=== PATIENT | male | born 1955 | race African-American/Black ===

== ENCOUNTER 2020-06-12 13:31 | Observation (INO) ==
[2020-06-12] MEDS ORDERED: SOLU-Medrol 125 MG VIAL IVP ONE (17:23)
[2020-06-12] MEDS ORDERED: NS 1000 ML 1,000 ML ONE (17:30)
--- NOTE | 2020-06-12 17:34 | RAD ---
HISTORYCOUGHSTUDYCHEST, PA/LAT ADULTCOMPARISONnoneFINDINGSThe trachea is midline. The cardiac silhouette is unremarkable . The lungs are clear without focal infiltrate or effusion. The bony thorax is unremarkable.IMPRESSIONNo acute cardiopulmonary disease.Electronically signed by: RICHARD WELCH (Jun 12, 2020 17:34:03)
[2020-06-12 18:02] VITALS: BMI 42.7
[2020-06-12] MEDS: ROCEPHIN VIAL 1 GRAM 1 G in NS 100 ML IV + SPIKE MINIBAG* 100 ML IV SCH (18:04)
[2020-06-12] MEDS: ZITHROMAX INJ 500 MG VIAL 250 MG in NS 250 ML IV 250 ML IV SCH ×2 (18:04→21:25)
[2020-06-12] MEDS: NS 1000 ML 1,000 ML IV SCH (18:05)
[2020-06-12 18:13] LABS: BASOPHILS # (AUTO) 0.1 X10^3/uL (0.0-0.1); BASOPHILS % (AUTO) 1.3 % (0.2-1.0); EOSINOPHILS # (AUTO) 0.5 x10^3/uL (0.0-0.2); EOSINOPHILS % (AUTO) 4.8 % (0.9-2.9); HEMATOCRIT 38.2 % (42.0-54.0); LYMPHOCYTES # (AUTO) 4.5 X10^3/uL (1.3-2.9); LYMPHOCYTES % (AUTO) 39.2 % (21.0-51.0); MEAN CORPUSCULAR HEMOGLOBIN 30.8 pg (27.0-34.0); MEAN CORPUSCULAR VOLUME 90.4 fL (80.0-100.0); MONOCYTES % (AUTO) 8.8 % (0.0-13.0); NEUTROPHILS # (AUTO) 5.3 x10^3/uL (2.2-4.8); NEUTROPHILS % (AUTO) 45.9 % (42.0-75.0); PLATELET COUNT 424 X10^3/uL (150.0-450.0); RED BLOOD COUNT 4.23 X10^6/uL (4.7-6.0); RED CELL DISTRIBUTION WIDTH 14.4 % (11.6-16.5); WHITE BLOOD COUNT 11.5 X10^3/uL (3.6-10.0)
[2020-06-12 18:20] LABS: ALANINE AMINOTRANSFERASE 36 Units/L (12-78); ALBUMIN 3.8 g/dL (3.4-5.0); ALKALINE PHOSPHATASE 70 Units/L (46-116); ASPARTATE AMINO TRANSFERASE 14 Units/L (15-37); BLOOD UREA NITROGEN 14 mg/dL (7-18); CALCIUM 9.3 mg/dL (8.5-10.1); CARBON DIOXIDE 29.1 mmol/L (21-32); CHLORIDE 102 mmol/L (98-107); CREATININE 1.33 mg/dL (0.70-1.30); SODIUM 141 mmol/L (136-145); TOTAL PROTEIN 7.6 g/dL (6.4-8.2); eGFR NON BLACK RACES 58 (>60)
[2020-06-12 18:42] LABS: ABG ALLEN TEST POS; ABG BASE EXCESS 5.1 mmol/L (-2.0-2.0); ABG HCO3 29.9 mmol/L (22-26)
[2020-06-12] MEDS ORDERED: NS 250 ML IV 250 ML IV ONE (21:03)
[2020-06-12] MEDS ORDERED: ZITHROMAX INJ 500 MG VIAL IV ONE (21:03)
[2020-06-12] MEDS: DUONEB 0.5 MG/3 MG (3 mL) NEB SCH (21:30)
[2020-06-12 21:41] LABS: BILIRUBIN,URINE NEGATIVE (NEGATIVE); BLOOD/HEMOGLOBIN,URINE NEGATIVE (NEGATIVE); GLUCOSE, URINE NEGATIVE (NEGATIVE); KETONES,URINE NEGATIVE (NEGATIVE); LEUKOCYTE ESTERASE ,URINE NEGATIVE (NEGATIVE); NITRITES,URINE NEGATIVE (NEGATIVE); PROTEIN,URINE NEGATIVE (NEGATIVE); UROBILINOGEN,URINE NORMAL (NORMAL)
[2020-06-12 21:42] LABS: APPEARANCE,URINE CLEAR (CLEAR); COLOR,URINE YELLOW (YELLOW)
[2020-06-13] MEDS: DUONEB 0.5 MG/3 MG (3 mL) NEB SCH ×5 (01:30→21:40)
[2020-06-13 06:20] LABS: BASOPHILS % (AUTO) 0.4 % (0.2-1.0); HEMATOCRIT 37.2 % (42.0-54.0); HEMOGLOBIN 12.8 g/dL (13.5-18.0); LYMPHOCYTES # (AUTO) 2.5 X10^3/uL (1.3-2.9); LYMPHOCYTES % (AUTO) 24.9 % (21.0-51.0); MEAN CORPUSCULAR HEMOGLOBIN 31.3 pg (27.0-34.0); MEAN CORPUSCULAR HGB CONC 34.4 g/dL (33.0-35.0); MEAN CORPUSCULAR VOLUME 90.9 fL (80.0-100.0); MONOCYTES # (AUTO) 0.1 x10^3/uL (0.3-0.8); NEUTROPHILS # (AUTO) 7.4 x10^3/uL (2.2-4.8); NEUTROPHILS % (AUTO) 73.7 % (42.0-75.0); PLATELET COUNT 423 X10^3/uL (150.0-450.0); RED BLOOD COUNT 4.09 X10^6/uL (4.7-6.0); RED CELL DISTRIBUTION WIDTH 14.6 % (11.6-16.5)
[2020-06-13 06:37] LABS: ALANINE AMINOTRANSFERASE 32 Units/L (12-78); ALBUMIN 3.4 g/dL (3.4-5.0); ALKALINE PHOSPHATASE 63 Units/L (46-116); ASPARTATE AMINO TRANSFERASE 14 Units/L (15-37); BLOOD UREA NITROGEN 22 mg/dL (7-18); CARBON DIOXIDE 26.1 mmol/L (21-32); CHLORIDE 104 mmol/L (98-107); COR NA(FOR HYPERGLY) 141 mmol/L (136-145); CREATININE 1.54 mg/dL (0.70-1.30); SODIUM 140 mmol/L (136-145); TOTAL PROTEIN 7.2 g/dL (6.4-8.2); eGFR NON BLACK RACES 49 (>60)
[2020-06-13] MEDS: SOLU-Medrol 40 MG VIAL IVP SCH ×2 (09:04→16:21)
[2020-06-13] MEDS: ROCEPHIN VIAL 1 GRAM 1 G in NS 100 ML IV + SPIKE MINIBAG* 100 ML IV SCH (09:04)
[2020-06-13] MEDS: NS 1000 ML 1,000 ML IV SCH ×2 (09:04→23:00)
[2020-06-13] MEDS: ZITHROMAX INJ 500 MG VIAL 250 MG in NS 250 ML IV 250 ML IV SCH (09:05)
[2020-06-13 09:51] LABS: CKMB % 1.5 % (<4); CREATINE KINASE 65 Units/L (39-308); TROPONIN I < 0.02 ng/mL (0-1.5)
[2020-06-13] MEDS: LOVENOX INJ 40 MG SYR SC SCH (12:01)
[2020-06-13] MEDS: PROTONIX INJ 40 MG VIAL IVP SCH (12:01)
[2020-06-13] MEDS ORDERED: NORCO 10/325 TAB ONE (15:27)
[2020-06-13] MEDS ORDERED: CARDIZEM ER 60 MG 12-HR PO ONE (15:27)
[2020-06-13] MEDS ORDERED: CARDIZEM CD 240 MG 24-HR PO ONE (15:27)
[2020-06-13] MEDS ORDERED: LEVSIN/MAALOX/LIDOC VISC ONE (15:27)
[2020-06-13 15:48] LABS: CKMB % 2.8 % (<4); CREATINE KINASE MB 2.1 ng/mL (0-4.0); TROPONIN I 0.02 ng/mL (0-1.5)
[2020-06-13] MEDS: COZAAR PO SCH ×2 (16:20→16:21)
[2020-06-13] MEDS: NEURONTIN CAP 100 MG PO SCH ×2 (17:33→23:00)
[2020-06-13 21:53] LABS: CREATINE KINASE MB 3.4 ng/mL (0-4.0); TROPONIN I 0.03 ng/mL (0-1.5)
[2020-06-13] MEDS: NYSTATIN SUSP PO SCH (22:04)
[2020-06-13] MEDS: NORCO 10/325 TAB PO PRN (23:01)
[2020-06-14] MEDS: DUONEB 0.5 MG/3 MG (3 mL) NEB SCH ×6 (00:35→21:01)
[2020-06-14] MEDS: SOLU-Medrol 40 MG VIAL IVP SCH ×4 (00:48→22:00)
[2020-06-14] MEDS: NYSTATIN SUSP PO SCH ×3 (05:59→22:00)
[2020-06-14] MEDS: NEURONTIN CAP 100 MG PO SCH (05:59)
[2020-06-14] MEDS: NORCO 10/325 TAB PO PRN ×2 (06:00→21:45)
[2020-06-14 06:26] LABS: MONOCYTES # (AUTO) 0.7 x10^3/uL (0.3-0.8); MONOCYTES % (AUTO) 2.9 % (0.0-13.0)
[2020-06-14 06:35] LABS: BASOPHILS % (AUTO) 0.2 % (0.2-1.0); HEMATOCRIT 36.6 % (42.0-54.0); HEMOGLOBIN 12.3 g/dL (13.5-18.0); LYMPHOCYTES % (AUTO) 8.7 % (21.0-51.0); MEAN CORPUSCULAR HEMOGLOBIN 30.8 pg (27.0-34.0); MEAN CORPUSCULAR HGB CONC 33.5 g/dL (33.0-35.0); MEAN PLATELET VOLUME 7.7 fL (7.4-11.0); NEUTROPHILS # (AUTO) 20.3 x10^3/uL (2.2-4.8); NEUTROPHILS % (AUTO) 88.2 % (42.0-75.0); PLATELET COUNT 417 X10^3/uL (150.0-450.0); RED BLOOD COUNT 3.98 X10^6/uL (4.7-6.0); RED CELL DISTRIBUTION WIDTH 15.1 % (11.6-16.5)
[2020-06-14 06:36] LABS: ALANINE AMINOTRANSFERASE 32 Units/L (12-78); ALBUMIN 3.4 g/dL (3.4-5.0); ALKALINE PHOSPHATASE 79 Units/L (46-116); ASPARTATE AMINO TRANSFERASE 14 Units/L (15-37); BLOOD UREA NITROGEN 24 mg/dL (7-18); CALCIUM 8.6 mg/dL (8.5-10.1); CARBON DIOXIDE 24.8 mmol/L (21-32); CHLORIDE 104 mmol/L (98-107); COR NA(FOR HYPERGLY) 141 mmol/L (136-145); CREATININE 1.25 mg/dL (0.70-1.30); SODIUM 139 mmol/L (136-145); eGFR NON BLACK RACES > 60 (>60)
[2020-06-14 07:02] LABS: BAND NEUTROPHILS % 8 % (0-10); PLATELET MORPHOLOGY COMMENT NORMAL (NORMAL)
[2020-06-14] MEDS: COZAAR PO SCH (08:57)
[2020-06-14] MEDS: LOVENOX INJ 40 MG SYR SC SCH (08:59)
[2020-06-14] MEDS ORDERED: DILTIAZEM HCL 300 MG PO SCH (09:00)
[2020-06-14] MEDS: PROTONIX INJ 40 MG VIAL IVP SCH (09:00)
[2020-06-14] MEDS ORDERED: PATIENT'S HOME MEDICATION (Umeclidinium-Vilanterol [Anoro Ellipta] 1 INH) IN SCH (09:00)
[2020-06-14] MEDS: ZITHROMAX INJ 500 MG VIAL 250 MG in NS 250 ML IV 250 ML IV SCH (09:01)
[2020-06-14] MEDS: ROCEPHIN VIAL 1 GRAM 1 G in NS 100 ML IV + SPIKE MINIBAG* 100 ML IV SCH (09:01)
[2020-06-14] MEDS: MAXZIDE 75/50 MG PO SCH (09:02)
--- NOTE | 2020-06-14 09:11 | DR.UPDATE ---
H&P Update History and Physical Update: History and Physical reviewed and patient examined. 06/12/2020 Changes noted: NO Prescription drug monitoring program results: PDMP reviewed and no concerns identified H&P Reviewed: Yes Patient was examined?: Yes
[2020-06-14 10:33] LABS: CKMB % 2.6 % (<4); TROPONIN I 0.04 ng/mL (0-1.5)
[2020-06-14 10:36] LABS: CREATINE KINASE MB 4.1 ng/mL (0-4.0)
--- NOTE | 2020-06-14 11:06 | RAD ---
HISTORY:Cough, COPDStudy: Single view chestComparison:06/12/2020FINDINGS/IMPRESSION:There is mild central vascular congestion and atelectas is at the lung bases that may be accentuated by portable technique. No infiltrate or pneumothorax mona ntified. Soft tissues are intact. Heart size is normal.Electronically signed by: DIETER MAJOR (Jun 14, 2020 11:05:29)
[2020-06-14] MEDS: CARDIZEM CD 240 MG 24-HR PO SCH (11:24)
[2020-06-14] MEDS: NEURONTIN TAB 600 MG PO SCH ×2 (13:27→22:00)
[2020-06-14] MEDS: NS 1000 ML 1,000 ML IV SCH (18:22)
[2020-06-14] MEDS: ZOCOR TAB 40 MG PO SCH (22:00)
[2020-06-14] MEDS: HYTRIN PO SCH (22:00)
[2020-06-15] MEDS: DUONEB 0.5 MG/3 MG (3 mL) NEB SCH ×6 (00:31→20:10)
[2020-06-15] MEDS: NS 1000 ML 1,000 ML IV SCH ×2 (02:58→15:11)
[2020-06-15] MEDS: NEURONTIN TAB 600 MG PO SCH ×3 (06:00→22:00)
[2020-06-15] MEDS: SOLU-Medrol 40 MG VIAL IVP SCH ×3 (06:00→21:00)
[2020-06-15] MEDS: NYSTATIN SUSP PO SCH ×3 (06:00→21:00)
[2020-06-15] MEDS: NORCO 10/325 TAB PO PRN ×2 (06:00→21:00)
--- NOTE | 2020-06-15 06:38 | RAD ---
HISTORYSOBSTUDYAP [id number]/16/2020FINDINGSHeart size is similar, upper normal to slightly enlarged. The lungs are hyperaerated but grossly clear. The left lower lobe is partly obscured by the heart. There is no evidence for developing consolidation, or edema. No pneumothorax is seen.IMPRESSIONNo change since 1 day earlier.Electronically signed by: NANCI MASTERS (Jun 15, 2020 06:37:22)
[2020-06-15 06:46] LABS: BASOPHILS % (AUTO) 0 % (0.2-1.0); HEMATOCRIT 35.2 % (42.0-54.0); HEMOGLOBIN 11.9 g/dL (13.5-18.0); LYMPHOCYTES # (AUTO) 1.8 X10^3/uL (1.3-2.9); LYMPHOCYTES % (AUTO) 9.5 % (21.0-51.0); MEAN CORPUSCULAR HGB CONC 33.8 g/dL (33.0-35.0); MEAN CORPUSCULAR VOLUME 91.9 fL (80.0-100.0); MEAN PLATELET VOLUME 7.9 fL (7.4-11.0); MONOCYTES # (AUTO) 0.5 x10^3/uL (0.3-0.8); MONOCYTES % (AUTO) 2.7 % (0.0-13.0); NEUTROPHILS # (AUTO) 16.9 x10^3/uL (2.2-4.8); NEUTROPHILS % (AUTO) 87.8 % (42.0-75.0); PLATELET COUNT 396 X10^3/uL (150.0-450.0); RED BLOOD COUNT 3.83 X10^6/uL (4.7-6.0); WHITE BLOOD COUNT 19.3 X10^3/uL (3.6-10.0)
[2020-06-15 07:16] LABS: ALANINE AMINOTRANSFERASE 34 Units/L (12-78); ALBUMIN 3.3 g/dL (3.4-5.0); ALKALINE PHOSPHATASE 65 Units/L (46-116); ASPARTATE AMINO TRANSFERASE 13 Units/L (15-37); BLOOD UREA NITROGEN 21 mg/dL (7-18); CALCIUM 8.4 mg/dL (8.5-10.1); CARBON DIOXIDE 23.5 mmol/L (21-32); CHLORIDE 105 mmol/L (98-107); CKMB % 3.1 % (<4); COR NA(FOR HYPERGLY) 142 mmol/L (136-145); CREATINE KINASE 124 Units/L (39-308); CREATINE KINASE MB 3.8 ng/mL (0-4.0); CREATININE 1.21 mg/dL (0.70-1.30); SODIUM 141 mmol/L (136-145); TOTAL PROTEIN 6.7 g/dL (6.4-8.2); TROPONIN I 0.02 ng/mL (0-1.5); eGFR NON BLACK RACES > 60 (>60)
[2020-06-15] MEDS: PROTONIX INJ 40 MG VIAL IVP SCH (09:45)
[2020-06-15] MEDS: CARDIZEM CD 240 MG 24-HR PO SCH (09:45)
[2020-06-15] MEDS: MAXZIDE 75/50 MG PO SCH (09:45)
[2020-06-15] MEDS: LOVENOX INJ 40 MG SYR SC SCH (09:45)
[2020-06-15] MEDS: COZAAR PO SCH (09:45)
[2020-06-15] MEDS ORDERED: KLOR-CON PO PRN (10:15)
[2020-06-15] MEDS ORDERED: K-RIDER 10 MEQ/NS 100 ML 10 MEQ/100 ML BAG IV PRN (10:15)
[2020-06-15] MEDS ORDERED: K-DUR TAB 20 MEQ PO PRN (10:15)
[2020-06-15] MEDS ORDERED: MICRO K EXTEN CAP 10 MEQ PO PRN (10:15)
[2020-06-15] MEDS ORDERED: POTASSIUM CHL 60 MEQ/NS 0.45% 500 ML IV PRN (10:15)
[2020-06-15] MEDS ORDERED: POTASSIUM CHL 40 MEQ/NS 0.45% 500 ML IV PRN (10:15)
[2020-06-15] MEDS ORDERED: POTASSIUM CHLORIDE LIQ 20 MEQ UDC PO PRN (10:15)
[2020-06-15] MEDS ORDERED: MICRO K EXTEN CAP 10 MEQ PO ONE (10:19)
[2020-06-15] MEDS: LEVAQUIN PREMIX IV 500 MG 500 MG/100 ML BAG IV SCH (11:00)
[2020-06-15] MEDS: FORTAZ or TAZICEF VIAL INJ 1 G in NS 100 ML IV + SPIKE MINIBAG* 100 ML IV SCH ×3 (12:00→21:00)
[2020-06-15] MEDS: DIFLUCAN 200 MG IV PREMIX* 200 MG/100 ML BAG IV SCH (12:21)
[2020-06-15] MEDS: MUCOMYST (RESPIRATORY USE ONLY) NEB SCH ×2 (12:36→20:10)
--- NOTE | 2020-06-15 20:55 | PCM.PROG ---
Progress Note - Progress Note for Day of Date of Exam: 06/15/20 - Subjective Subjective: IS BEING TREATED FOR COPD EXACERBATION WITH ACUTE BRONCHITIS. TODAY, IS ALERT AND OREINTED, LYING IN BED ON MORNING ROUNDS. HE CONTINUES WITH COMPLAINTS OF A NON-PRODUCTIVE COUGH AND SHORTNESS OF BREATH. ON EXAMINATION, HEART IS REGULAR IN RATE AND RHYTHM. BILATERAL LUNGS ARE NOTED WITH SCATTERED WHEEZING THROUGHOUT. ABDOMEN IS ROUND, SOFT, AND NON-TENDER WITH NORMAL BOWEL SOUNDS NOTED IN ALL QUADRANTS. HIS VITALS THIS MORNING ARE: 97.6-70-20-94%RA-155/68. LABS WERE OBTAINED. ABNORMAL LAB VALUES INCLUDE THE FOLLOWING: WBC DECREASED FROM 23.0 TO 19.3, RBC 3.83, HGB 11.9, HCT 35.2, BUN 21, GLUCOSE 155, CALCIUM 8.4, TOTAL BILI 0.10, AST 13, ALBUMIN 3.3. ELEVATED WBC IS SUSPECTED TO BE FROM STEROID USE. SPUTUM CULTURE REVEALS GROWTH OF YEAST. CHEST XRAY WAS OBTAINED TODAY AND REVEALED: Heart size is similar, upper normal to slightly enlarged. The lungs are hyperaerated but grossly clear. The left lower lobe is partly obscured by the heart. There is no evidence for developing consolidation, or edema. No pneumothorax is seen. HE IS CURRENTLY RECEIVING NS AT [facility], ROCEPHIN 1G IV DAILY, ZITHROMAX 250MG IV DAILY, DUONEBS Q4H, MUCOMYST BID, LOVENOX 40MG SC DAILY, SOLU-MEDROL 40MG IV Q8H, NYSTATIN SWISH AND SWALLOW TID, PROTONIX 40MG IV DAILY, AND THE PTOASSIUM AND MAGNESIUM PROTOCOLS. TODAY, WE WILL ADD DIFLUCAN 200MG IV DAILY, LEVAQUIN 500MG IV DAILY, FORTAZ 1G IV TID. WE WILL DISCONTINUE THE ROCEPHIN AND ZITHROMAX. OTHERWISE, WE PLAN TO FOLLOW UP WITH AM LABS AND CONTINUE TO MONITOR. - Past Medical Family Social History Past Med/Fam/Surg Hx: No changes since H&P Allergies: Allergies No Known Drug Allergies Allergy (Verified 06/12/20 17:07) - Review of Systems ROS: No change since H&P - Vital Signs and I&O's Vital Signs: Temperature 97.6 F Pulse Rate [Apical] 71 Pulse Rate 69 Respiratory Rate 22 Blood Pressure [Right Arm] 137/60 O2 Sat by Pulse Oximetry 98 Intake and Output: Intake & Output 06/13/20 06/14/20 06/15/20 06/16/20 11:59 11:59 11:59 11:59 Intake Total 1760 / 1760 4170 / 4170 2700 / 2700 1164 / 1164 Output Total 225 / 225 1625 / 1625 1200 / 1200 Balance 1535 / 1535 2545 / 2545 1500 / 1500 1164 / 1164 - Physical Exam Oriented: Normal Eyes: Normal Ear: Normal Nose: Normal Throat: Normal Respiratory: Generalized, Wheezes Cardiovascular: Normal : Normal Auscultation: Bowel Sounds: Normal Palpation: Normal Tenderness: Normal Skin: Normal Musculoskeletal: Normal Psychiatric: Normal Mood Description: Calm Affect: Normal Speech Pattern: Clear, Appropriate - Laboratory and Diagnostics Result Diagrams: 06/15/20 05:20 06/15/20 05:20 Labs: 06/12/20 21:27 Urine,Clean Catch Urine Culture - Final 06/13/20 10:08 Sputum - Expectorated Sputum Sputum Culture - Final 06/13/20 10:08 Sputum - Expectorated Sputum - Final 06/12/20 17:50 Blood Blood Culture - Preliminary Laboratory WBC 19.3 X10^3/uL (3.6-10.0) H 06/15/20 05:20 RBC 3.83 X10^6/uL (4.7-6.0) L 06/15/20 05:20 Hgb 11.9 g/dL (13.5-18.0) L 06/15/20 05:20 Hct 35.2 % (42.0-54.0) L 06/15/20 05:20 MCV 91.9 fL (80.0-100.0) 06/15/20 05:20 MCH 31.0 pg (27.0-34.0) 06/15/20 05:20 MCHC 33.8 g/dL (33.0-35.0) 06/15/20 05:20 RDW 15.0 % (11.6-16.5) 06/15/20 05:20 Plt Count 396 X10^3/uL (150.0-450.0) 06/15/20 05:20 Plt Count Comment Adequate (ADEQUATE) 06/14/20 06:00 MPV 7.9 fL (7.4-11.0) 06/15/20 05:20 Neut % (Auto) 87.8 % (42.0-75.0) H 06/15/20 05:20 Lymph % (Auto) 9.5 % (21.0-51.0) L 06/15/20 05:20 [place] % (Auto) 2.7 % (0.0-13.0) 06/15/20 05:20 Eos % (Auto) 0.0 % (0.9-2.9) L 06/15/20 05:20 Baso % (Auto) 0 % (0.2-1.0) L 06/15/20 05:20 Neut # (Auto) 16.9 x10^3/uL (2.2-4.8) H 06/15/20 05:20 Lymph # (Auto) 1.8 X10^3/uL (1.3-2.9) 06/15/20 05:20 [place] # (Auto) 0.5 x10^3/uL (0.3-0.8) 06/15/20 05:20 Eos # (Auto) 0.0 x10^3/uL (0.0-0.2) 06/15/20 05:20 Baso # (Auto) 0.0 X10^3/uL (0.0-0.1) 06/15/20 05:20 Absolute Nucleated RBC 0.0 /100WBC 06/15/20 05:20 Total Counted 100 06/14/20 06:00 Neutrophils % (Manual) 75 % (39-76) 06/14/20 06:00 Band Neutrophils % 8 % (0-10) 06/14/20 06:00 Lymphocytes % (Manual) 15 % (13-43) 06/14/20 06:00 Monocytes % (Manual) 2 % (4-9) L 06/14/20 06:00 Plt Morphology Comment Normal (NORMAL) 06/14/20 06:00 RBC Morphology Normal (NORMAL) 06/14/20 06:00 Sample Site Rra 06/12/20 18:39 ABG pH 7.440 (7.35-7.45) 06/12/20 18:39 ABG pCO2 44.0 mmHg (35.0-45.0) 06/12/20 18:39 ABG pO2 63.0 mmHg (80.0-100.0) L 06/12/20 18:39 ABG HCO3 29.9 mmol/L (22-26) H 06/12/20 18:39 ABG O2 Saturation 93.0 % (90-100) 06/12/20 18:39 ABG Base Excess 5.1 mmol/L (-2.0-2.0) H 06/12/20 18:39 Hira Test Pos 06/12/20 18:39 A-a Gradient 32.0 mmHg 06/12/20 18:39 FiO2 21.0 06/12/20 18:39 Blood Gas Comments Pt james well eb 06/12/20 18:39 Sodium 141 mmol/L (136-145) 06/15/20 05:20 Corrected Sodium 142 mmol/L (136-145) 06/15/20 05:20 Potassium 3.5 mmol/L (3.5-5.1) 06/15/20 05:20 Chloride 105 mmol/L (98-107) 06/15/20 05:20 Carbon Dioxide 23.5 mmol/L (21-32) 06/15/20 05:20 BUN 21 mg/dL (7-18) H 06/15/20 05:20 Creatinine 1.21 mg/dL (0.70-1.30) 06/15/20 05:20 Est GFR (MDRD) Af Amer > 60 (>60) 06/15/20 05:20 Est GFR (MDRD) Non-Af > 60 (>60) 06/15/20 05:20 Glucose 155 mg/dL (65-99) H 06/15/20 05:20 Calcium 8.4 mg/dL (8.5-10.1) L 06/15/20 05:20 Corrected Calcium 9.0 mg/dL (8.5-10.1) 06/15/20 05:20 Magnesium 1.7 mg/dL (1.7-2.9) 06/15/20 05:20 Total Bilirubin 0.10 mg/dL (0.2-1.0) L 06/15/20 05:20 AST 13 Units/L (15-37) L 06/15/20 05:20 ALT 34 Units/L (12-78) 06/15/20 05:20 Alkaline Phosphatase 65 Units/L (46-116) 06/15/20 05:20 Creatine Kinase 124 Units/L (39-308) 06/15/20 05:20 CK-MB (CK-2) 3.8 ng/mL (0-4.0) 06/15/20 05:20 CK/CKMB % Calc 3.1 % (<4) 06/15/20 05:20 Troponin I 0.02 ng/mL (0-1.5) 06/15/20 05:20 Total Protein 6.7 g/dL (6.4-8.2) 06/15/20 05:20 Albumin 3.3 g/dL (3.4-5.0) L 06/15/20 05:20 Globulin 3.4 g/dL (2.5-4.5) 06/15/20 05:20 Albumin/Globulin Ratio 1.0 Ratio (1.1-2.1) L 06/15/20 05:20 Specimen Type Clean catch urine 06/12/20 21: Urine Color Yellow (YELLOW) 06/12/20 21: Urine Appearance Clear (CLEAR) 06/12/20 21: Urine pH 5.0 (5.0 - 8.0) 06/12/20 21: Ur Specific [place] 1.020 (1.000-1.030) 06/12/20 21: Urine Protein Negative (NEGATIVE) 06/12/20 21: Urine Glucose (UA) Negative (NEGATIVE) 06/12/20 21: Urine Ketones Negative (NEGATIVE) 06/12/20 21: Urine Occult Blood Negative (NEGATIVE) 06/12/20 21: Urine Nitrite Negative (NEGATIVE) 06/12/20 21: Urine Bilirubin Negative (NEGATIVE) 06/12/20 21: Urine Urobilinogen Normal (NORMAL) 06/12/20 21: Ur Leukocyte Esterase Negative (NEGATIVE) 06/12/20: - Plan (1) COPD exacerbation Status: Acute
[2020-06-15] MEDS: ZOCOR TAB 40 MG PO SCH (21:00)
[2020-06-15] MEDS: HYTRIN PO SCH (21:00)
[2020-06-16] MEDS: DUONEB 0.5 MG/3 MG (3 mL) NEB SCH ×6 (00:30→20:30)
[2020-06-16] MEDS: MAGNESIUM SULFATE 1 GRAM/100 mL PREMIX 1 GM/100 ML BAG IV PRN ×2 (01:00→03:00)
[2020-06-16] MEDS: SOLU-Medrol 40 MG VIAL IVP SCH ×3 (05:46→21:04)
[2020-06-16] MEDS: FORTAZ or TAZICEF VIAL INJ 1 G in NS 100 ML IV + SPIKE MINIBAG* 100 ML IV SCH ×3 (05:47→21:06)
[2020-06-16] MEDS: NEURONTIN TAB 600 MG PO SCH ×3 (05:47→21:07)
[2020-06-16] MEDS: NYSTATIN SUSP PO SCH ×3 (05:48→21:07)
[2020-06-16] MEDS: NORCO 10/325 TAB PO PRN ×3 (06:00→23:15)
--- NOTE | 2020-06-16 06:53 | RAD ---
06/15/2020 HISTORYSOBSTUDYCHEST, 1 [id number]/17/2020FINDINGSThe trachea is midline. The cardiac silhouette is borderline enlarged, unchanged. The lungs are clear without focal infiltrate or effusion. The bony thorax is unremarkable.[ ]IMPRESSIONNo acute cardiopulmonary abnormality or change from prior examination.Electronically signed by: JALIL PERRY (Jun 16, 2020 06:51:33)
[2020-06-16 07:11] LABS: BASOPHILS % (AUTO) 0.2 % (0.2-1.0); HEMATOCRIT 33.6 % (42.0-54.0); HEMOGLOBIN 11.4 g/dL (13.5-18.0); LYMPHOCYTES # (AUTO) 1.7 X10^3/uL (1.3-2.9); LYMPHOCYTES % (AUTO) 12.3 % (21.0-51.0); MEAN CORPUSCULAR HEMOGLOBIN 31.1 pg (27.0-34.0); MEAN CORPUSCULAR HGB CONC 33.9 g/dL (33.0-35.0); MEAN CORPUSCULAR VOLUME 91.8 fL (80.0-100.0); MEAN PLATELET VOLUME 7.5 fL (7.4-11.0); MONOCYTES # (AUTO) 0.7 x10^3/uL (0.3-0.8); MONOCYTES % (AUTO) 5.2 % (0.0-13.0); NEUTROPHILS # (AUTO) 11.6 x10^3/uL (2.2-4.8); NEUTROPHILS % (AUTO) 82.3 % (42.0-75.0); PLATELET COUNT 328 X10^3/uL (150.0-450.0); RED BLOOD COUNT 3.67 X10^6/uL (4.7-6.0); RED CELL DISTRIBUTION WIDTH 15.1 % (11.6-16.5); WHITE BLOOD COUNT 14.2 X10^3/uL (3.6-10.0)
[2020-06-16 07:12] LABS: ALANINE AMINOTRANSFERASE 40 Units/L (12-78); ALKALINE PHOSPHATASE 66 Units/L (46-116); ASPARTATE AMINO TRANSFERASE 20 Units/L (15-37); BLOOD UREA NITROGEN 23 mg/dL (7-18); CALCIUM 8.3 mg/dL (8.5-10.1); CHLORIDE 105 mmol/L (98-107); COR CA(FOR HYPOALB) 9.1 mg/dL (8.5-10.1); COR NA(FOR HYPERGLY) 143 mmol/L (136-145); CREATININE 1.28 mg/dL (0.70-1.30); MAGNESIUM 2.3 mg/dL (1.7-2.9); SODIUM 141 mmol/L (136-145); TOTAL PROTEIN 6.2 g/dL (6.4-8.2); eGFR NON BLACK RACES > 60 (>60)
[2020-06-16] MEDS: COZAAR PO SCH (08:29)
[2020-06-16] MEDS: CARDIZEM CD 240 MG 24-HR PO SCH (08:29)
[2020-06-16] MEDS: LEVAQUIN PREMIX IV 500 MG 500 MG/100 ML BAG IV SCH (08:30)
[2020-06-16] MEDS: MAXZIDE 75/50 MG PO SCH (08:30)
[2020-06-16] MEDS: DIFLUCAN 200 MG IV PREMIX* 200 MG/100 ML BAG IV SCH (08:30)
[2020-06-16] MEDS: PROTONIX INJ 40 MG VIAL IVP SCH (08:31)
[2020-06-16] MEDS: LOVENOX INJ 40 MG SYR SC SCH (08:48)
[2020-06-16] MEDS: MUCOMYST (RESPIRATORY USE ONLY) NEB SCH ×2 (08:55→20:30)
--- NOTE | 2020-06-16 12:38 | PCM.PROG ---
Progress Note - Progress Note for Day of Date of Exam: 06/16/20 - Subjective Subjective: IS BEING TREATED FOR COPD EXACERBATION WITH ACUTE BRONCHITIS. TODAY, HE IS ALERT AND OREINTED, LYING IN BED ON MORNING ROUNDS. HE CONTINUES WITH COMPLAINTS OF A NON-PRODUCTIVE COUGH AND SHORTNESS OF BREATH, BUT REPORTS SLIGHT IMPROVEMENT IN SYMPTOMS SINCE ONE DAY PRIOR. ON EXAMINATION, HEART IS REGULAR IN RATE AND RHYTHM. BILATERAL LUNGS ARE NOTED WITH SCATTERED WHEEZING THROUGHOUT. ABDOMEN IS ROUND, SOFT, AND NON-TENDER WITH NORMAL BOWEL SOUNDS NOTED IN ALL QUADRANTS. HIS VITALS THIS MORNING ARE: 97.7-81-20-94%-177/80. LABS WERE OBTAINED. ABNORMAL LAB VALUES INCLUDE THE FOLL OWING: WBC DECREASED FROM WBC 14.2, RBC 3.67, HGB 11.4, HCT 33.6, BUN 23, GLUCOSE 169, CALCIUM 8.3, TOTAL PROTEIN 6.2, ALBUMIN 3.0. ELEVATED WBC IS SUSPECTED TO BE FROM STEROID USE. SPUTUM CULTURE REVEALS GROWTH OF YEAST. CHEST XRAY WAS OBTAINED TODAY AND REVEALED: No acute cardiopulmonary abnormality or change from prior examination. HE IS CURRENTLY RECEIVING NS AT [facility], FORTAZ 1G IV TID, LEVAQUIN 500MG IV DAILY, DIFLUCAN 200MG IV DAILY, DUONEBS Q4H, MUCOMYST BID, LOVENOX 40MG SC DAILY, SOLU-MEDROL 40MG IV Q8H, NYSTATIN SWISH AND SWALLOW TID, PROTONIX 40MG IV DAILY, AND THE PTOASSIUM AND MAGNESIUM PROTOCOLS. WE WILL CONTINUE WITH CURRENT PLAN OF CARE TODAY. OTHERWISE, WE PLAN TO FOLLOW UP WITH AM LABS AND CONTINUE TO MONITOR. - Past Medical Family Social History Past Med/Fam/Surg Hx: No changes since H&P Allergies: Allergies No Known Drug Allergies Allergy (Verified 06/12/20 17:07) - Review of Systems ROS: No change since H&P - Vital Signs and I&O's Vital Signs: Temperature 97.6 F Pulse Rate [Apical] 86 Pulse Rate 78 Respiratory Rate 20 Blood Pressure [Right Arm] 186/78 O2 Sat by Pulse Oximetry 96 Intake and Output: Intake & Output 06/14/20 06/15/20 06/16/20 06/17/20 11:59 11:59 11:59 11:59 Intake Total 4170 / 4170 2700 / 2700 2984 / 2984 Output Total 1625 / 1625 1200 / 1200 Balance 2545 / 2545 1500 / 1500 2984 / 2984 - Physical Exam Oriented: Normal Eyes: Normal Ear: Normal Nose: Normal Throat: Normal Respiratory: Generalized, Wheezes Cardiovascular: Normal : Normal Auscultation: Bowel Sounds: Normal Tenderness: Normal Skin: Normal Musculoskeletal: Normal Psychiatric: Normal Mood Description: Calm Affect: Normal Speech Pattern: Clear, Appropriate - Laboratory and Diagnostics Result Diagrams: 06/16/20 05:19 06/16/20 05:19 Labs: 06/12/20 21:27 Urine,Clean Catch Urine Culture - Final 06/13/20 10:08 Sputum - Expectorated Sputum Sputum Culture - Final 06/13/20 10:08 Sputum - Expectorated Sputum - Final 06/12/20 17:50 Blood Blood Culture - Preliminary Laboratory WBC 14.2 X10^3/uL (3.6-10.0) H 06/16/20 05:19 RBC 3.67 X10^6/uL (4.7-6.0) L 06/16/20 05:19 Hgb 11.4 g/dL (13.5-18.0) L 06/16/20 05:19 Hct 33.6 % (42.0-54.0) L 06/16/20 05:19 MCV 91.8 fL (80.0-100.0) 06/16/20 05:19 MCH 31.1 pg (27.0-34.0) 06/16/20 05:19 MCHC 33.9 g/dL (33.0-35.0) 06/16/20 05:19 RDW 15.1 % (11.6-16.5) 06/16/20 05:19 Plt Count 328 X10^3/uL (150.0-450.0) 06/16/20 05:19 Plt Count Comment Adequate (ADEQUATE) 06/14/20 06:00 MPV 7.5 fL (7.4-11.0) 06/16/20 05:19 Neut % (Auto) 82.3 % (42.0-75.0) H 06/16/20 05:19 Lymph % (Auto) 12.3 % (21.0-51.0) L 06/16/20 05:19 [place] % (Auto) 5.2 % (0.0-13.0) 06/16/20 05:19 Eos % (Auto) 0.0 % (0.9-2.9) L 06/16/20 05:19 Baso % (Auto) 0.2 % (0.2-1.0) 06/16/20 05:19 Neut # (Auto) 11.6 x10^3/uL (2.2-4.8) H 06/16/20 05:19 Lymph # (Auto) 1.7 X10^3/uL (1.3-2.9) 06/16/20 05:19 [place] # (Auto) 0.7 x10^3/uL (0.3-0.8) 06/16/20 05:19 Eos # (Auto) 0.0 x10^3/uL (0.0-0.2) 06/16/20 05:19 Baso # (Auto) 0.0 X10^3/uL (0.0-0.1) 06/16/20 05:19 Absolute Nucleated RBC 0.0 /100WBC 06/16/20 05:19 Total Counted 100 06/14/20 06:00 Neutrophils % (Manual) 75 % (39-76) 06/14/20 06:00 Band Neutrophils % 8 % (0-10) 06/14/20 06:00 Lymphocytes % (Manual) 15 % (13-43) 06/14/20 06:00 Monocytes % (Manual) 2 % (4-9) L 06/14/20 06:00 Plt Morphology Comment Normal (NORMAL) 06/14/20 06:00 RBC Morphology Normal (NORMAL) 06/14/20 06:00 Sample Site Rra 06/12/20 18:39 ABG pH 7.440 (7.35-7.45) 06/12/20 18:39 ABG pCO2 44.0 mmHg (35.0-45.0) 06/12/20 18:39 ABG pO2 63.0 mmHg (80.0-100.0) L 06/12/20 18:39 ABG HCO3 29.9 mmol/L (22-26) H 06/12/20 18:39 ABG O2 Saturation 93.0 % (90-100) 06/12/20 18:39 ABG Base Excess 5.1 mmol/L (-2.0-2.0) H 06/12/20 18:39 Hira Test Pos 06/12/20 18:39 A-a Gradient 32.0 mmHg 06/12/20 18:39 FiO2 21.0 06/12/20 18:39 Blood Gas Comments Pt james well eb 06/12/20 18:39 Sodium 141 mmol/L (136-145) 06/16/20 05:19 Corrected Sodium 143 mmol/L (136-145) 06/16/20 05:19 Potassium 3.7 mmol/L (3.5-5.1) 06/16/20 05:19 Chloride 105 mmol/L (98-107) 06/16/20 05:19 Carbon Dioxide 26.0 mmol/L (21-32) 06/16/20 05:19 BUN 23 mg/dL (7-18) H 06/16/20 05:19 Creatinine 1.28 mg/dL (0.70-1.30) 06/16/20 05:19 Est GFR (MDRD) Af Amer > 60 (>60) 06/16/20 05:19 Est GFR (MDRD) Non-Af > 60 (>60) 06/16/20 05:19 Glucose 169 mg/dL (65-99) H 06/16/20 05:19 Calcium 8.3 mg/dL (8.5-10.1) L 06/16/20 05:19 Corrected Calcium 9.1 mg/dL (8.5-10.1) 06/16/20 05:19 Magnesium 2.3 mg/dL (1.7-2.9) 06/16/20 05:19 Total Bilirubin 0.20 mg/dL (0.2-1.0) 06/16/20 05:19 AST 20 Units/L (15-37) 06/16/20 05:19 ALT 40 Units/L (12-78) 06/16/20 05:19 Alkaline Phosphatase 66 Units/L (46-116) 06/16/20 05:19 Creatine Kinase 124 Units/L (39-308) 06/15/20 05:20 CK-MB (CK-2) 3.8 ng/mL (0-4.0) 06/15/20 05:20 CK/CKMB % Calc 3.1 % (<4) 06/15/20 05:20 Troponin I 0.02 ng/mL (0-1.5) 06/15/20 05:20 Total Protein 6.2 g/dL (6.4-8.2) L 06/16/20 05:19 Albumin 3.0 g/dL (3.4-5.0) L 06/16/20 05:19 Globulin 3.2 g/dL (2.5-4.5) 06/16/20 05:19 Albumin/Globulin Ratio 0.9 Ratio (1.1-2.1) L 06/16/20 05:19 Specimen Type Clean catch urine 06/12/20 21: Urine Color Yellow (YELLOW) 06/12/20: Urine Appearance Clear (CLEAR) 06/12/20 21: Urine pH 5.0 (5.0 - 8.0) 06/12/20 21: Ur Specific [place] 1.020 (1.000-1.030) 06/12/20 21: Urine Protein Negative (NEGATIVE) 06/12/20: Urine Glucose (UA) Negative (NEGATIVE) 06/12/20 21: Urine Ketones Negative (NEGATIVE) 06/12/20: Urine Occult Blood Negative (NEGATIVE) 06/12/20: Urine Nitrite Negative (NEGATIVE) 06/12/20: Urine Bilirubin Negative (NEGATIVE) 06/12/20: Urine Urobilinogen Normal (NORMAL) 06/12/20: Ur Leukocyte Esterase Negative (NEGATIVE) 06/12/20 - Plan (1) COPD exacerbation Status: Acute
[2020-06-16] MEDS: NS 1000 ML 1,000 ML IV SCH ×2 (17:37→21:01)
[2020-06-16] MEDS: ZOCOR TAB 40 MG PO SCH (21:01)
[2020-06-16] MEDS: HYTRIN PO SCH (21:01)
[2020-06-17] MEDS: DUONEB 0.5 MG/3 MG (3 mL) NEB SCH ×7 (01:46→23:49)
--- NOTE | 2020-06-17 05:23 | RAD ---
HISTORYSOBSTUDYCHEST, 1 [id number]/2020FINDINGSThe trachea is midline. The cardiac silhouette is stable. Mild central pulmonary vascular congestion. No new consolidation. Small left pleural effusion cannot be entirely excluded.. The bony thorax is stable.IMPRESSIONMild central pulmonary vascular congestion. Small left pleural effusion not excluded.Electronically signed by: Stacie Song (Jun 17, 2020 05:21:19)
[2020-06-17] MEDS: SOLU-Medrol 40 MG VIAL IVP SCH (05:49)
[2020-06-17] MEDS: NEURONTIN TAB 600 MG PO SCH ×3 (05:49→21:16)
[2020-06-17] MEDS: NYSTATIN SUSP PO SCH ×3 (05:49→21:16)
[2020-06-17] MEDS: FORTAZ or TAZICEF VIAL INJ 1 G in NS 100 ML IV + SPIKE MINIBAG* 100 ML IV SCH ×3 (05:49→21:16)
[2020-06-17] MEDS: NORCO 10/325 TAB PO PRN ×2 (06:09→21:15)
[2020-06-17 06:24] LABS: BASOPHILS % (AUTO) 0.1 % (0.2-1.0); HEMATOCRIT 34.8 % (42.0-54.0); HEMOGLOBIN 11.8 g/dL (13.5-18.0); LYMPHOCYTES % (AUTO) 14.2 % (21.0-51.0); MEAN CORPUSCULAR HGB CONC 33.9 g/dL (33.0-35.0); MEAN CORPUSCULAR VOLUME 91.5 fL (80.0-100.0); MEAN PLATELET VOLUME 7.6 fL (7.4-11.0); MONOCYTES % (AUTO) 6.8 % (0.0-13.0); NEUTROPHILS # (AUTO) 11.1 x10^3/uL (2.2-4.8); NEUTROPHILS % (AUTO) 78.9 % (42.0-75.0); PLATELET COUNT 375 X10^3/uL (150.0-450.0); RED CELL DISTRIBUTION WIDTH 15.1 % (11.6-16.5); WHITE BLOOD COUNT 14.1 X10^3/uL (3.6-10.0)
[2020-06-17 06:32] LABS: ALANINE AMINOTRANSFERASE 77 Units/L (12-78); ALBUMIN 3.2 g/dL (3.4-5.0); ALKALINE PHOSPHATASE 69 Units/L (46-116); ASPARTATE AMINO TRANSFERASE 39 Units/L (15-37); BLOOD UREA NITROGEN 25 mg/dL (7-18); CALCIUM 8.2 mg/dL (8.5-10.1); CARBON DIOXIDE 24.6 mmol/L (21-32); CHLORIDE 103 mmol/L (98-107); COR CA(FOR HYPOALB) 8.8 mg/dL (8.5-10.1); COR NA(FOR HYPERGLY) 141 mmol/L (136-145); CREATININE 1.33 mg/dL (0.70-1.30); SODIUM 140 mmol/L (136-145); TOTAL PROTEIN 6.4 g/dL (6.4-8.2); eGFR NON BLACK RACES 58 (>60)
[2020-06-17 07:16] LABS: BAND NEUTROPHILS % 2 % (0-10); PLATELET MORPHOLOGY COMMENT NORMAL (NORMAL)
[2020-06-17] MEDS: COZAAR PO SCH (09:25)
[2020-06-17] MEDS: CARDIZEM CD 240 MG 24-HR PO SCH (09:25)
[2020-06-17] MEDS: PROTONIX INJ 40 MG VIAL IVP SCH (09:25)
[2020-06-17] MEDS: LEVAQUIN PREMIX IV 500 MG 500 MG/100 ML BAG IV SCH (09:25)
[2020-06-17] MEDS: LOVENOX INJ 40 MG SYR SC SCH (09:25)
[2020-06-17 09:27] LABS: ABG ALLEN TEST POS; ABG BASE EXCESS 0.1 mmol/L (-2.0-2.0); ABG HCO3 25.4 mmol/L (22-26)
[2020-06-17] MEDS: MUCOMYST (RESPIRATORY USE ONLY) NEB SCH ×2 (09:55→20:43)
[2020-06-17] MEDS: K-DUR TAB 20 MEQ PO SCH ×2 (11:20→21:18)
[2020-06-17] MEDS: DIFLUCAN 200 MG IV PREMIX* 200 MG/100 ML BAG IV SCH (11:20)
[2020-06-17] MEDS ORDERED: LASIX IVP ONE (13:30)
[2020-06-17] MEDS: MAXZIDE 75/50 MG PO SCH (13:40)
[2020-06-17] MEDS: LASIX IVP SCH (19:02)
[2020-06-17] MEDS: HYTRIN PO SCH (21:00)
[2020-06-17] MEDS: ZOCOR TAB 40 MG PO SCH (21:18)
[2020-06-18] MEDS: DUONEB 0.5 MG/3 MG (3 mL) NEB SCH ×3 (04:44→13:13)
[2020-06-18] MEDS ORDERED: NS 100 ML IV 100 ML IV ONE (05:31)
[2020-06-18] MEDS ORDERED: FORTAZ or TAZICEF VIAL INJ ONE (05:31)
--- NOTE | 2020-06-18 05:34 | RAD ---
HISTORYSOBSTUDYCHEST, 1 [id number]/2020FINDINGSThe trachea is midline. The cardiac silhouette is unremarkable . The lungs are clear without focal infiltrate or effusion. The bony thorax is unremarkable.IMPRESSIONNo acute cardiopulmonary disease.Electronically signed by: Stacie Song (Jun 18, 2020 05:32:23)
[2020-06-18] MEDS: FORTAZ or TAZICEF VIAL INJ 1 G in NS 100 ML IV + SPIKE MINIBAG* 100 ML IV SCH (05:40)
[2020-06-18] MEDS: NEURONTIN TAB 600 MG PO SCH (05:40)
[2020-06-18] MEDS: NYSTATIN SUSP PO SCH (05:41)
[2020-06-18] MEDS: NS 1000 ML 1,000 ML IV SCH (05:48)
[2020-06-18] MEDS: NORCO 10/325 TAB PO PRN (06:02)
[2020-06-18 06:31] LABS: BASOPHILS % (AUTO) 0.2 % (0.2-1.0); EOSINOPHILS % (AUTO) 0.1 % (0.9-2.9); HEMATOCRIT 36.6 % (42.0-54.0); HEMOGLOBIN 12.3 g/dL (13.5-18.0); LYMPHOCYTES # (AUTO) 3.3 X10^3/uL (1.3-2.9); MEAN CORPUSCULAR HEMOGLOBIN 30.5 pg (27.0-34.0); MEAN CORPUSCULAR HGB CONC 33.6 g/dL (33.0-35.0); MEAN CORPUSCULAR VOLUME 90.9 fL (80.0-100.0); MEAN PLATELET VOLUME 7.5 fL (7.4-11.0); MONOCYTES # (AUTO) 1.5 x10^3/uL (0.3-0.8); MONOCYTES % (AUTO) 9.7 % (0.0-13.0); NEUTROPHILS # (AUTO) 10.8 x10^3/uL (2.2-4.8); PLATELET COUNT 372 X10^3/uL (150.0-450.0); RED BLOOD COUNT 4.03 X10^6/uL (4.7-6.0); RED CELL DISTRIBUTION WIDTH 15.4 % (11.6-16.5); WHITE BLOOD COUNT 15.7 X10^3/uL (3.6-10.0)
[2020-06-18 06:41] LABS: ALANINE AMINOTRANSFERASE 92 Units/L (12-78); ALBUMIN 3.2 g/dL (3.4-5.0); ALKALINE PHOSPHATASE 83 Units/L (46-116); ASPARTATE AMINO TRANSFERASE 50 Units/L (15-37); BLOOD UREA NITROGEN 32 mg/dL (7-18); CALCIUM 8.5 mg/dL (8.5-10.1); CARBON DIOXIDE 29.5 mmol/L (21-32); CHLORIDE 101 mmol/L (98-107); COR CA(FOR HYPOALB) 9.1 mg/dL (8.5-10.1); COR NA(FOR HYPERGLY) 138 mmol/L (136-145); CREATININE 1.34 mg/dL (0.70-1.30); SODIUM 138 mmol/L (136-145); TOTAL PROTEIN 6.4 g/dL (6.4-8.2); eGFR NON BLACK RACES 57 (>60)
[2020-06-18 07:08] LABS: BAND NEUTROPHILS % 6 % (0-10); METAMYELOCYTES % 5; PLATELET MORPHOLOGY COMMENT NORMAL (NORMAL)
[2020-06-18] MEDS: MUCOMYST (RESPIRATORY USE ONLY) NEB SCH (08:36)
[2020-06-18] MEDS: MAXZIDE 75/50 MG PO SCH (09:45)
[2020-06-18] MEDS: COZAAR PO SCH (09:45)
[2020-06-18] MEDS: DIFLUCAN 200 MG IV PREMIX* 200 MG/100 ML BAG IV SCH (09:45)
[2020-06-18] MEDS: PROTONIX INJ 40 MG VIAL IVP SCH (09:45)
[2020-06-18] MEDS: CARDIZEM CD 240 MG 24-HR PO SCH (09:45)
[2020-06-18] MEDS: K-DUR TAB 20 MEQ PO SCH (09:45)
[2020-06-18] MEDS: LOVENOX INJ 40 MG SYR SC SCH (09:45)
[2020-06-18] MEDS: LEVAQUIN PREMIX IV 500 MG 500 MG/100 ML BAG IV SCH (10:46)
[2020-06-18] MEDS: LASIX IVP SCH (10:46)
[2020-06-18 14:23] VITALS: BP 164/71
== END 2020-06-18 14:35 | disposition home or self-care (01) ==
LOC: MED/SURG
PROVIDERS: ADMIT Internal Medicine; ATTEND Internal Medicine
DX: M19.90 Unspecified osteoarthritis, unspecified site; J44.1 Chronic obstructive pulmonary disease with (acute) exacerbation; J20.9 Acute bronchitis, unspecified; I10 Essential (primary) hypertension; R06.02 Shortness of breath; M51.36 Other intervertebral disc degeneration, lumbar region; R94.31 Abnormal electrocardiogram [ECG] [EKG]; J44.0 Chronic obstructive pulmonary disease with (acute) lower respiratory infection; K21.9 Gastro-esophageal reflux disease without esophagitis